=== PATIENT | female | born 1990 | race Two or more races ===

== ENCOUNTER 2019-09-29 18:49 | Emergency (ER) | payer OTHER ==
[2019-09-29 18:55] VITALS: BP 110/60; PULSE 117; BMI 29.9
[2019-09-29] MEDS ORDERED: ACETAMINOPHEN 325 MG TABLET (FP) PO ONE (21:02)
[2019-09-29] MEDS ORDERED: IBUPROFEN 600 MG TABLET (FP) PO ONE ×3 (22:05→22:48)
--- NOTE | 2019-09-29 23:01 | PDOC ---
History of Present Illness - General Chief Complaint: Cold Symptoms Stated Complaint: POSSIBLE FLU Time Seen by Provider: 09/29/19 20:31 History Source: Patient Exam Limitations: No Limitations Past History - Past Medical History Allergies/Adverse Reactions: Allergies Allergy/AdvReac Type Severity Reaction Status Date / Time No Known Allergies Allergy Verified 09/29/19 21:15 - Psycho Social/Smoking Cessation Hx Smoking History: Never smoked Information on smoking cessation initiated: No Hx Alcohol Use: No Drug/Substance Use Hx: No *Physical Exam - Vital Signs Last Vital Signs Temp Pulse Resp BP Pulse Ox 102.8 F H 117 H 19 110/60 100 09/29/19 18:53 09/29/19 18:53 09/29/19 18:53 09/29/19 18:53 09/29/19 18:53 - Physical Exam General Appearance: No: Apparent Distress HEENT: positive: Normal Voice, Nasal Congestion, Rhinorrhea. negative: Muffled/ Hoarse voice, Pharyngeal Erythema, Tonsillar Exudate, Tonsillar Erythema, Sinus Tenderness Respiratory/Chest: positive: Lungs Clear, Normal Breath Sounds. negative: Respiratory Distress Cardiovascular: positive: Tachycardia. negative: Murmur Gastrointestinal/Abdominal: positive: Soft. negative: Tender Integumentary: positive: Normal Color Neurologic: positive: Alert ED Treatment Course - Medications Given in the ED: ED Medications Discontinued Medications Generic Name Dose Route Start Last Admin Trade Name Freq PRN Reason Stop Dose Admin Acetaminophen 975 mg 09/29/19 21:02 09/29/19 21:16 Tylenol - PO 09/29/19 21:03 975 mg ONCE ONE Administration Ibuprofen 600 mg 09/29/19 22:05 09/29/19 22:56 Motrin - PO 09/29/19 22:06 600 mg ONCE ONE Administration Medical Decision Making - Medical Decision Making 28 y/o F with no sig pmh presents with fever x 2 days along with cough, congestion, rhinorrhea and body aches. Took Motrin at 9 AM. +nausea. Denies recent travel, sob, cp, abd pain, vomiting, diarrhea. Flu negative Given Tylenol and Motrin Temp going down to 100 Patient feeling better likely viral syndrome stable for dc 09/29/19 22:59 Discharge - Discharge Information Problems reviewed: Yes Clinical Impression/Diagnosis: Viral URI Condition: Stable Disposition: HOME - Admission No - Additional Discharge Information Prescription Drug Monitoring Program (I-STOP) results: I-STOP not reviewed - Follow up/Referral - Patient Discharge Instructions Patient Printed Discharge Instructions: DI for Viral Upper Respiratory Infection -- Adult Additional Instructions: Thank you for choosing . It was a pleasure taking care of you. You have viral infection Alternate between Tylenol every 4 and Motrin every 6 hours as needed for fever Recommend rest and hydration Follow-up with your doctor in 2 days Return to the Emergency Department if your symptoms worsen or persist or have other concerning symptoms. - Post Discharge Activity Work/Back to School Note: Back to Work
[2019-09-29 23:08] VITALS: TEMP 99.4
== END 2019-09-29 23:15 | disposition home or self-care (01) ==
LOC: JER 18:49
DX: J06.9 Acute upper respiratory infection, unspecified (principal); B97.89 Other viral agents as the cause of diseases classified elsewhere
CPT/HCPCS: 87804; 99281-25

== ENCOUNTER 2020-03-03 01:33 | Emergency (ER) | payer OTHER ==
[2020-03-03 01:40] VITALS: BMI 28.0
--- NOTE | 2020-03-03 02:43 | PDOC ---
History of Present Illness - General Chief Complaint: Vaginal Bleeding Stated Complaint: 12 WEEKS ,VAGINAL BLEEDING Time Seen by Provider: 03/03/20 02:40 - History of Present Illness Initial Comments: 03/03/20 02:43 HPI: 39 y/o F presenting with vaginal bleeding and lower abd pain. Started yesterday with blood clots; was assessed at [facility] and told had a single live iup at 12w5d. Today however lower abd pain worsened and she had a large episode of heavy vaginal bleeding and some nausea. Pain is 2/10 right now and she is more concerned with the large amount of bleeding. She denies LH, fever, chills, chest pain, SOB, dysuria. PMHx: as noted above ROS: as noted SHx: Denies tobacco use; no alcohol use; no rec drugs Allergies: NKDA ROS: GENERAL/CONSTITUTIONAL: No fever or chills. No weakness. HEAD, EYES, EARS, NOSE AND THROAT: No change in vision. No ear pain or discharge. No sore throat. CARDIOVASCULAR: No chest pain or shortness of breath RESPIRATORY: No cough, wheezing, or hemoptysis. GASTROINTESTINAL: +nausea; no vomiting, diarrhea or constipation. GENITOURINARY: No dysuria, frequency, or change in urination. MUSCULOSKELETAL: No joint or muscle swelling or pain. No neck or back pain. SKIN: No rash NEUROLOGIC: No headache, vertigo, loss of consciousness, or change in strength/sensation. ENDOCRINE: No increased thirst. No abnormal weight change HEMATOLOGIC/LYMPHATIC: No anemia, easy bleeding, or history of blood clots. ALLERGIC/IMMUNOLOGIC: No hives or skin allergy. PE: GENERAL: Awake, alert, and fully oriented, no acute distress HEAD: No signs of trauma, normocephalic, atraumatic EYES: EOMI, sclera anicteric, conjunctiva clear ENT: Auricles normal inspection, hearing grossly normal, nares patent, oropharynx clear without exudates. Moist mucosa NECK: Normal ROM, no lymphadenopathy LUNGS: No increased work of breathing, symmetrical chest rise, clear to auscultation bilaterally, no wheezes, crackles or rhonchi HEART: Regular rate, regular rhythm, normal S1 and S2, no murmur, peripheral pulses 2+ and equal bilaterally. ABDOMEN: Soft, nondistended, BL lower abd ttp LLQ>RLQ with guarding, no rebound. No masses. No CVAT MUSCULOSKELETAL: FROM NEUROLOGICAL: Cranial nerves II through XII grossly intact. Normal speech, normal gait, no focal sensorimotor deficits SKIN: Warm, Dry, normal turgor, no rashes or lesions noted Past History - Medical History Allergies/Adverse Reactions: Allergies Allergy/AdvReac Type Severity Reaction Status Date / Time No Known Allergies Allergy Verified 03/03/20 01:39 Home Medications: Ambulatory Orders Nitrofurantoin Monohyd/M-Cryst [Macrobid -] 100 mg PO BID #14 capsule 03/03/20 - Psycho-Social/Smoking History Smoking History: Never smoked Have you smoked in the past 12 months: No Information on smoking cessation initiated: No - Substance Abuse Hx (Audit-C & DAST Scrn) How often the patient has a drink containing alcohol: Never Score: In Men: 4 or > Positive; In Women: 3 or > Positive: 0 Screen Result (Pos requires Nsg. Audit-10AR): Negative In the last yr the pt used illegal drug/Rx for NonMed reason: No Score: Yes response is considered Positive: 0 Screen Result (Positive result requires Nsg. DAST-10): Negative *Physical Exam - Vital Signs Last Vital Signs Temp Pulse Resp BP Pulse Ox 99.2 F 92 H 20 97/56 L 99 03/03/20 01:35 03/03/20 01:35 03/03/20 01:35 03/03/20 01:35 03/03/20 01:35 ED Treatment Course - LABORATORY CBC & Chemistry Diagram: 03/03/20 02:39 03/03/20 02:39 Medical Decision Making - Medical Decision Making 03/03/20 04:02 39 y/o F presenting with vaginal bleeding and lower abd pain. PE with LLQ>RLQ ttp; pelvic exam with closed os and no blood in the vaginal vault -t&s, cbc, cmp, ua, coags, TVUS, bhcg 03/03/20 04:03 TVUS with single live iup 12w4d t&s pending 03/03/20 04:36 O positive blood type will DC home with instructions to f/u with Naphthalene Operator; all questions answered Discharge - Discharge Information Problems reviewed: Yes Clinical Impression/Diagnosis: Vaginal bleeding before 22 weeks gestation Condition: Stable Disposition: HOME - Additional Discharge Information Prescriptions: Nitrofurantoin Monohyd/M-Cryst [Macrobid -] 100 mg PO BID #14 capsule - Follow up/Referral Referrals: Vin Ray II, DO [Primary Care Provider] - - Patient Discharge Instructions Patient Printed Discharge Instructions: DI for Vaginal Bleeding During Additional Instructions: Additional Instructions: Please return to the emergency department with any new or worsening symptoms or concerns including worsening vaginal bleeding, worsening abdominal pain, fainting. Please follow up with your Naphthalene Operator doctor at your scheduled appointment tomorrow You may take tylenol 650mg every 6-8 hours as needed for pain control Instrucciones adicionales: Regrese al departamento de emergencias con cualquier sntoma o inquietud nueva o que empeore, incluyendo un sangrado vaginal que empeora, un dolor abdominal que empeora, desmayos. Domingo un seguimiento con rosario mdico de Naphthalene Operator en rosario anahi programada maana Puede spenser tylenol 650 mg cada 6-8 horas segn sea necesario para controlar el dolor. Print Language: ENGLISH - Post Discharge Activity
--- NOTE | 2020-03-03 03:05 | PDOC ---
Attending Attestation - Resident Resident Name: Sherrill Resendiz - ED Attending Attestation I have performed the following: I have examined & evaluated the patient, The case was reviewed & discussed with the resident, I agree w/resident's findings & plan - HPI HPI: 03/03/20 04:29 Pt comes with vaginal bleeding in . - Physicial Exam PE: 03/03/20 04:33 Agree with resident exam. Pt has no active vag bleed at this time Pt has no suprapubic pain No flank pain No fever heart lungs normal - Medical Decision Making 03/03/20 04:34 O POS blood labs normal UA shows loads of bacteria. She will be treated with macrobid Pt received 1L LR She feels better Ready to go home Discharge - Discharge Information Problems reviewed: Yes Clinical Impression/Diagnosis: Vaginal bleeding before 22 weeks gestation Condition: Stable Disposition: HOME - Additional Discharge Information Prescriptions: Nitrofurantoin Monohyd/M-Cryst [Macrobid -] 100 mg PO BID #14 capsule - Follow up/Referral Referrals: Vin Ray II, DO [Primary Care Provider] - - Patient Discharge Instructions Patient Printed Discharge Instructions: DI for Vaginal Bleeding During Additional Instructions: Additional Instructions: Please return to the emergency department with any new or worsening symptoms or concerns including worsening vaginal bleeding, worsening abdominal pain, fainting. Please follow up with your Financial Investment Manager doctor at your scheduled appointment tomorrow You may take tylenol 650mg every 6-8 hours as needed for pain control Instrucciones adicionales: Regrese al departamento de emergencias con cualquier sntoma o inquietud nueva o que empeore, incluyendo un sangrado vaginal que empeora, un dolor abdominal que empeora, desmayos. Domingo un seguimiento con rosario mdico de Financial Investment Manager en rosario anahi programada maana Puede spenser tylenol 650 mg cada 6-8 horas segn sea necesario para controlar el dolor. Print Language: JAPANESE - Post Discharge Activity
[2020-03-03 03:16] LABS: BASO % 0.4 % (0-2.0); EOS % 1.4 % (0-4.5); HEMATOCRIT 34.9 % (32.4-45.2); HEMOGLOBIN 11.7 GM/dL (10.7-15.3); MCH 30.9 pg (25.7-33.7); MCHC 33.4 g/dl (32.0-36.0); MEAN CELL VOLUME 92.6 fl (80-96); MEAN PLT VOLUME 7.7 fl (7.5-11.1); MONO % 8.6 % (3.8-10.2); NEUT % 60.6 % (42.8-82.8); PLATELET COUNT 242 K/MM3 (134-434); RBC 3.77 M/mm3 (3.60-5.2); RDW 12.8 % (11.6-15.6); WHITE BLOOD COUNT 8.1 K/mm3 (4.0-10.0)
[2020-03-03 03:26] LABS: URINE APPEARANCE Clear; URINE BILIRUBIN Negative (NEGATIVE); URINE COLOR Yellow; URINE GLUCOSE (UA) Negative (NEGATIVE); URINE KETONE Negative (NEGATIVE); URINE LEUK ESTERASE Negative (NEGATIVE); URINE NITRITE Negative (NEGATIVE); URINE PROTEIN Negative (NEGATIVE); URINE UROBILINOGEN 0.2 mg/dL (0.2-1.0)
[2020-03-03 03:33] LABS: EPI CELLS 64.9 /uL (0-25.1); HYALINE CASTS 1.05 /uL (0-3.1); URINE RBC 11.4 /uL (0-23.9); URINE WBC 14.2 /uL (0-25.8)
[2020-03-03] MEDS ORDERED: LACTATED RINGERS SOLUTION 1000 ML INFUS.BAG IV ONE (03:37)
[2020-03-03 03:45] LABS: ALBUMIN 3.3 g/dl (3.4-5.0); BILIRUBIN,TOTAL 0.2 mg/dL (0.2-1); CALCIUM 9.2 mg/dL (8.5-10.1); CREATININE 0.6 mg/dL (0.55-1.3); TOT PROT 6.8 g/dl (6.4-8.2)
[2020-03-03] MEDS ORDERED: NITROFURANTOIN MACROCRYSTAL 50 MG CAPSULE (FP) ONE (04:33)
[2020-03-03 04:42] VITALS: BP 108/57; PULSE 94; TEMP 97.2
[2020-03-03] MEDS ORDERED: NITROFURANTOIN MACROCRYSTAL 50 MG CAPSULE (FP) PO SCH (04:45)
== END 2020-03-03 04:43 | disposition home or self-care (01) ==
LOC: JER 01:33
DX: O20.8 Other hemorrhage in early pregnancy (principal); Z3A.12 12 weeks gestation of pregnancy
CPT/HCPCS: 36415; 76801-TC; 80053; 81003; 84702; 85025; 86850; 86900; 86901; 87086; 99284-25